=== PATIENT | female | born 2000 | race Caucasian/White ===

== ENCOUNTER 2020-05-30 21:22 | Observation (INO) ==
[2020-05-30] MEDS ORDERED: Betamethasone Acet/SodPhos 30 MG/5 ML VIAL IM SCH (21:30)
[2020-05-30 22:07] LABS: Bilirubin,Urine Negative (Negative); Blood,Urine Negative (Negative); Clarity,Urine Clear (Clear); Color,Urine Light-Yellow (Yellow); Glucose,Urine (UA) Normal (Normal); Ketones,Urine Negative (Negative); Leukocyte Esterase,Urine Negative (Negative); Nitrite,Urine Negative (Negative); PH,Urine 6.5 pH Units (5.0-8.0); Protein,Urine Negative (Neg-Trace); Urobilinogen,Urine Normal (Normal)
[2020-05-30 22:10] LABS: Basophils # 0.1 K/mcL (0.0-0.2); Basophils % 0.5 %; Eosinophils % 0.3 %; Hematocrit 29.3 % (35.3-44.9); Hemoglobin 9.3 g/dL (11.5-15.4); Lymphocytes # 2.7 K/mcL (0.6-4.6); Lymphocytes % 19.8 %; Mean Corpuscular HGB Conc 31.7 g/dL (31.6-35.5); Mean Corpuscular Hemoglobin 26.3 pg (28.0-33.3); Mean Platelet Volume 9.9 fL (9.4-12.4); Monocytes # 0.9 K/mcL (0.0-1.3); Monocytes % 6.3 %; Neutrophils # 9.8 K/mcL (1.6-8.9); Platelet Count 278 K/mcL (140-400); Red Blood Count 3.53 M/mcL (3.82-4.97); Red Cell Distribution Width 16.4 % (11.5-14.5); Segmented Neutrophils % 72.1 %; White Blood Count 13.6 K/mcL (4.3-11.1)
[2020-05-30 22:20] LABS: Amphetamine Screen,Urine Negative ng/mL (Cutoff=1000); Barbiturate Screen,Urine Negative ng/mL (Cutoff=200); Benzodiazepines Screen,Urine Negative ng/mL (Cutoff=200); Cannabinoid Screen,Urine Positive ng/mL (Cutoff = 50); Cocaine Screen,Urine Negative ng/mL (Cutoff= 300); Opiate Screen,Urine Negative ng/mL (Cutoff=300); Phencyclidine Screen,Urine Negative ng/mL (Cutoff=25)
[2020-05-30 22:56] LABS: Varicella Zoster IgG Antibody Positive
[2020-05-30 22:57] LABS: Rubella IgG Antibody POSITIVE (POSITIVE)
[2020-05-31 01:39] LABS: Hepatitis B Surface Antigen Nonreactive (Nonreactive)
[2020-05-31 02:08] LABS: HIV-1&2 Antibody & p24 Ag Nonreactive (Nonreactive)
== END 2020-05-30 23:48 | disposition home or self-care (01) ==
LOC: 1NENULAB
PROVIDERS: ADMIT Advanced Practice Midwife; ATTEND Advanced Practice Midwife

== ENCOUNTER 2020-05-31 03:30 | Observation (INO) ==
[2020-05-31] MEDS ORDERED: Melatonin 3 MG TABLET PO PRN (06:36)
[2020-05-31] MEDS ORDERED: Prenatal Vit/FA 1 EACH TABLET PO SCH (09:00)
[2020-05-31] MEDS ORDERED: Betamethasone Acet/SodPhos 30 MG/5 ML VIAL IM SCH (14:45)
[2020-05-31 15:54] VITALS: BP 118/60
== END 2020-05-31 15:45 | disposition home or self-care (01) ==
LOC: 1NENUOBS
PROVIDERS: ADMIT Advanced Practice Midwife; ATTEND Advanced Practice Midwife

== ENCOUNTER → 2020-05-31 22:20 | Observation (INO) | END | disposition left against medical advice (07) | LOC: 1NENULAB | PROVIDERS: ADMIT Advanced Practice Midwife; ATTEND Advanced Practice Midwife ==

== ENCOUNTER → 2020-06-22 00:14 | Observation (INO) ==
[2020-06-21 21:13] LABS: Bilirubin,Urine Negative (Negative); Blood,Urine Negative (Negative); Clarity,Urine Clear (Clear); Color,Urine Light-Yellow (Yellow); Glucose,Urine (UA) Normal (Normal); Ketones,Urine Negative (Negative); Leukocyte Esterase,Urine Negative (Negative); Nitrite,Urine Negative (Negative); PH,Urine 6.5 pH Units (5.0-8.0); Protein,Urine Trace mg/dL (Neg-Trace); Specific Gravity,Urine 1.018 (1.010-1.025); Urobilinogen,Urine Normal (Normal)
[~2020-06-22 00:14] MED LIST: Ferumoxytol 510 MG in 0.9 % Sodium Chloride 100 ML IVPB ONE; Ringers Solution, Lactated 1,000 ML IVC ONE; Ringers Solution, Lactated 1,000 ML ONE
== END | disposition left against medical advice (07) ==
LOC: 1NENULAB
PROVIDERS: ADMIT Registered Nurse; ATTEND Registered Nurse

== ENCOUNTER → 2020-06-22 08:43 | Observation (INO) ==
[2020-06-22 01:25] LABS: Amphetamine Screen,Urine Negative ng/mL (Cutoff=1000); Barbiturate Screen,Urine Negative ng/mL (Cutoff=200); Benzodiazepines Screen,Urine Negative ng/mL (Cutoff=200); Cannabinoid Screen,Urine Positive ng/mL (Cutoff = 50); Cocaine Screen,Urine Negative ng/mL (Cutoff= 300); Opiate Screen,Urine Negative ng/mL (Cutoff=300); Phencyclidine Screen,Urine Negative ng/mL (Cutoff=25)
[~2020-06-22 08:43] MED LIST changes: +Acetaminophen 325 MG TABLET PO ONE; -Ferumoxytol 510 MG in 0.9 % Sodium Chloride 100 ML IVPB ONE; -Ringers Solution, Lactated 1,000 ML IVC ONE; -Ringers Solution, Lactated 1,000 ML ONE
== END | disposition home or self-care (01) ==
LOC: 1NENULAB
PROVIDERS: ADMIT Advanced Practice Midwife; ATTEND Advanced Practice Midwife

== ENCOUNTER 2020-07-16 04:52 | Inpatient (IN) ==
[2020-07-16] MEDS ORDERED: Famotidine 20 MG/2 ML VIAL IVP PRN (05:09)
[2020-07-16] MEDS ORDERED: Naloxone 0.4 MG/ML INJ IVP PRN (05:09)
[2020-07-16] MEDS ORDERED: Lidocaine 1% 20 ML MDV INFILT PRN (05:09)
[2020-07-16] MEDS ORDERED: Metoclopramide 10 MG/2 ML VIAL IVP PRN (05:09)
[2020-07-16] MEDS ORDERED: Ringers Solution, Lactated 1,000 ML ONE (05:13)
[2020-07-16] MEDS ORDERED: Ringers Solution, Lactated 1,000 ML IVC SCH (05:15)
[2020-07-16] MEDS ORDERED: Penicillin G Potassium 5,000,000 UNIT in 0.9 % Sodium Chloride Mini Bag 100 ML IVPB ONE (05:22)
[2020-07-16] MEDS ORDERED: EPHEDrine 50 MG/ML VIAL IVP PRN (05:25)
[2020-07-16 05:28] LABS: Basophils # 0.1 K/mcL (0.0-0.2); Basophils % 0.5 %; Eosinophils # 0.1 K/mcL (0.0-0.6); Eosinophils % 0.5 %; Hematocrit 31.6 % (35.3-44.9); Hemoglobin 9.8 g/dL (11.5-15.4); Immature Granulocytes % 0.8 % (0-4); Lymphocytes # 3.1 K/mcL (0.6-4.6); Lymphocytes % 26.6 %; Mean Corpuscular Hemoglobin 24.7 pg (28.0-33.3); Mean Corpuscular Volume 79.6 fL (83.0-100.0); Mean Platelet Volume 10.3 fL (9.4-12.4); Monocytes # 0.7 K/mcL (0.0-1.3); Neutrophils # 7.6 K/mcL (1.6-8.9); Nucleated Red Blood Cells 0.3 /100 WBC (0); Platelet Count 168 K/mcL (140-400); Red Blood Count 3.97 M/mcL (3.82-4.97); Segmented Neutrophils % 65.6 %; White Blood Count 11.5 K/mcL (4.3-11.1)
[2020-07-16] MEDS ORDERED: Bupivacaine-MPF 0.25% 10 ML VIAL ONE (05:30)
[2020-07-16 05:40] LABS: Amphetamine Screen,Urine Negative ng/mL (Cutoff=1000); Barbiturate Screen,Urine Negative ng/mL (Cutoff=200); Benzodiazepines Screen,Urine Negative ng/mL (Cutoff=200); Cannabinoid Screen,Urine Positive ng/mL (Cutoff = 50); Cocaine Screen,Urine Negative ng/mL (Cutoff= 300); Opiate Screen,Urine Negative ng/mL (Cutoff=300); Phencyclidine Screen,Urine Negative ng/mL (Cutoff=25)
[2020-07-16] MEDS ORDERED: Ondansetron 4 MG/2 ML VIAL IVP PRN (07:15)
[2020-07-16] MEDS ORDERED: Ondansetron 4 MG/2 ML VIAL ONE (07:18)
[2020-07-16] MEDS ORDERED: Oxytocin 20 units/ LR 1000 mL 20 UNIT/1,000 ML BAG IVC ONE (07:47)
[2020-07-16] MEDS ORDERED: Ropivacaine/PF 0.2% 20 ML VIAL ONE (08:20)
[2020-07-16] MEDS ORDERED: *HR* FentaNYL (PF) 100 MCG/2 ML VIAL ONE (08:20)
[2020-07-16] MEDS: Epidural Premix (fent/bupiv) 110 ML EP SCH ×2 (09:17→14:39)
[2020-07-16] MEDS: Penicillin G Potassium 2,500,000 UNIT/105 ML MLS IVPB SCH ×2 (09:19→13:29)
[2020-07-16] MEDS ORDERED: Famotidine 20 MG/2 ML VIAL IVP ONE (13:39)
[2020-07-16] MEDS ORDERED: Ibuprofen 600 MG TABLET PO ONE (17:41)
[2020-07-16] MEDS ORDERED: Ibuprofen 600 MG TABLET PO PRN (18:57)
[2020-07-16] MEDS ORDERED: Acetaminophen 325 MG TABLET PO PRN (18:57)
[2020-07-16] MEDS ORDERED: Benzocaine/Menthol 56 GM AEROSOL SPRAY TP PRN (18:57)
[2020-07-16] MEDS ORDERED: Lanolin 7 G OINT...G. TP PRN (18:57)
[2020-07-16] MEDS ORDERED: Oxytocin 20 units/ LR 1000 mL 20 UNIT/1,000 ML BAG IVC SCH (19:00)
[2020-07-17 05:43] LABS: Basophils # 0.1 K/mcL (0.0-0.2); Basophils % 0.5 %; Eosinophils # 0.1 K/mcL (0.0-0.6); Eosinophils % 0.8 %; Hematocrit 25.1 % (35.3-44.9); Immature Granulocytes % 0.5 % (0-4); Lymphocytes # 3.5 K/mcL (0.6-4.6); Lymphocytes % 26.8 %; Mean Corpuscular HGB Conc 31.5 g/dL (31.6-35.5); Mean Corpuscular Volume 79.4 fL (83.0-100.0); Mean Platelet Volume 11.1 fL (9.4-12.4); Monocytes # 0.9 K/mcL (0.0-1.3); Monocytes % 6.6 %; Neutrophils # 8.5 K/mcL (1.6-8.9); Nucleated Red Blood Cells 0.3 /100 WBC (0); Platelet Count 133 K/mcL (140-400); Red Blood Count 3.16 M/mcL (3.82-4.97); Red Cell Distribution Width 18.8 % (11.5-14.5); Segmented Neutrophils % 64.8 %; White Blood Count 13.1 K/mcL (4.3-11.1)
[2020-07-17 05:59] LABS: Hemoglobin 7.9 g/dL (11.5-15.4)
[2020-07-17 07:46] VITALS: BP 108/70
[2020-07-17] MEDS ORDERED: Prenatal Vit/FA 1 EACH TABLET PO SCH (09:00)
== END 2020-07-17 19:00 | disposition home or self-care (01) | DRG 560 ==
LOC: 1NENULAB 04:52 → 1NENUOBS 17:22
PROVIDERS: ADMIT Registered Nurse; ATTEND Registered Nurse